=== PATIENT | female | born 1945 | race Caucasian/White ===

== ENCOUNTER → 2016-10-04 | Outpatient (CLI) | payer MEDICARE, BC ==
[~2016-10-04] MED LIST: ASPIRIN E.C. 8181 MG PO; BENICAR 20MG TA20 MG PO; LIPITOR20 MG PO; MAREPA1200 MG PO; MULTIPLE VITAMI1 CAP PO; NATURE'S BLEND400 IU PO; VITAMINC1000TA PO; VOLTAREN 75 DR75 MG PO
[2016-10-04 11:46] LABS: HIV 1/2 Antibodies Non-Reactive; HIV-1p24 Antigen Non-Reactive
== END ==
LOC: COL.RAD 09:38
PROVIDERS: Orthopaedic Surgery
DX: Z01.812 Encounter for preprocedural laboratory examination (principal); M17.12 Unilateral primary osteoarthritis, left knee

== ENCOUNTER 2016-10-10 10:41 | Outpatient (RCR) | payer MEDICARE, BC | END 2016-10-11 11:11 | disposition still patient (30) | LOC: WSPT 10:41 | DX: Z01.818 Encounter for other preprocedural examination (principal); M17.12 Unilateral primary osteoarthritis, left knee | CPT/HCPCS: G8978-GP; G8979-GP; G8980-GP ==

== ENCOUNTER 2016-11-21 11:00 | Outpatient (RCR) | payer MEDICARE, BC | END 2016-12-08 17:21 | disposition still patient (30) | LOC: WSPT 11:00 | DX: M17.12 Unilateral primary osteoarthritis, left knee (principal); Z96.652 Presence of left artificial knee joint | CPT/HCPCS: G8978-GP; G8979-GP; G8980-GP ==

== ENCOUNTER → 2018-05-07 | Outpatient (CLI) | payer MEDICARE, BC | LOC: MC.RAD 11:19 | DX: Z12.31 Encounter for screening mammogram for malignant neoplasm of breast (principal) ==

== ENCOUNTER → 2019-05-15 | Outpatient (CLI) | payer MEDICARE, BC | LOC: MC.RAD 09:08 | DX: Z12.31 Encounter for screening mammogram for malignant neoplasm of breast (principal) ==

== ENCOUNTER → 2020-08-20 | Outpatient (CLI) | payer MEDICARE, BC | LOC: MC.RAD 10:00 | DX: Z12.31 Encounter for screening mammogram for malignant neoplasm of breast (principal) ==

== ENCOUNTER 2021-03-17 10:12 | Outpatient (RCR) | payer MEDICARE, BC | END 2021-04-30 | disposition home or self-care (01) | LOC: WSPT | DX: M25.552 Pain in left hip (principal) ==

== ENCOUNTER 2021-04-28 09:45 | Outpatient (RCR) | payer MEDICARE, BC | END 2021-04-30 | disposition home or self-care (01) | LOC: WSPT | DX: Z96.642 Presence of left artificial hip joint (principal) ==

== ENCOUNTER 2021-05-19 09:45 | Outpatient (RCR) | payer MEDICARE, BC | END 2021-05-21 10:52 | disposition home or self-care (01) | LOC: WSPT 09:45 | DX: Z96.642 Presence of left artificial hip joint (principal) ==

== ENCOUNTER → 2021-08-23 | Outpatient (CLI) | payer MEDICARE, BC | LOC: MC.RAD 08:45 | DX: Z12.31 Encounter for screening mammogram for malignant neoplasm of breast (principal) ==

== ENCOUNTER 2021-09-09 07:26 | Day surgery (SDC) | payer MEDICARE, BC ==
[~2021-09-09] VITALS: Ht 167.6 cm; Wt 87.7 kg
[2021-09-09 08:22] VITALS: BP 120/66; PULSE 68; TEMP 98
[2021-09-09 08:25] VITALS: BP 120/66; PULSE 68; TEMP 98
[2021-09-09] MEDS ORDERED: NORVASC 10MG10 MG PO (08:27)
[2021-09-09] MEDS ORDERED: HYZAAR 25 MG-101 TAB PO (08:29)
[2021-09-09] MEDS ORDERED: LIPITOR20 MG PO (08:30)
[2021-09-09] MEDS ORDERED: ASPIRIN E.C. 8181 MG PO (08:31)
[2021-09-09] MEDS ORDERED: MASON NATURAL1200 MG PO (08:31)
[2021-09-09] MEDS ORDERED: CVS SPECTRAVIT1 EA15 PO (08:32)
[2021-09-09] MEDS ORDERED: VITAMINC1000TA PO (08:32)
[2021-09-09] MEDS ORDERED: NATURAL E400 IU PO (08:33)
[2021-09-09] MEDS ORDERED: VITAMIN D 400400 IU PO (08:33)
[2021-09-09 09:40] VITALS: BP 134/52; PULSE 62; TEMP 97.1
[2021-09-09 09:45] VITALS: BP 138/61; PULSE 63
[2021-09-09 10:00] VITALS: BP 139/65; PULSE 63
[2021-09-09 10:15] VITALS: BP 142/65; PULSE 64
--- NOTE | 2021-09-09 10:50 | NUR ---
0940-pt returned to recliner in bay 4 via cart post procedure. Pt A&O. Able to ambulate to chair. VSS-documented. Given hot tea and applesauce, warm blanket and call light. 1050-pts VS remain stable. Tolerated oral intake. Dr Tsang in to visit with pt and pts daughter post procedure. IV removed, catheter tip intact and pressure dressing applied. Pt dressed independently. Discharge teaching completed, pt and pts daughter verbalized understanding. Pt taken via wheelchair to private vehicle for dc home with daughter driving. Pt left with all personal belongings including dc teaching packet.
== END 2021-09-09 10:50 | disposition home or self-care (01) ==
LOC: SDCO 07:26
DX: D12.2 Benign neoplasm of ascending colon (principal); D12.4 Benign neoplasm of descending colon; D12.5 Benign neoplasm of sigmoid colon; R19.5 Other fecal abnormalities; Z87.891 Personal history of nicotine dependence
CPT/HCPCS: J2704

== ENCOUNTER → 2022-08-26 | Outpatient (CLI) | payer MEDICARE, BC ==
[~2022-08-26] MED LIST changes: +CVS SPECTRAVIT1 EA15 PO; +HYZAAR 25 MG-101 TAB PO; +MASON NATURAL1200 MG PO; +NATURAL E400 IU PO; +NORVASC 10MG10 MG PO; +VITAMIN D 400400 IU PO
== END ==
LOC: MC.RAD 07:11
DX: Z12.31 Encounter for screening mammogram for malignant neoplasm of breast (principal)

== ENCOUNTER → 2023-06-01 | Outpatient (CLI) | payer MEDICARE, BC | LOC: COL.RAD 06:43 | DX: N18.32 Chronic kidney disease, stage 3b (principal); N28.89 Other specified disorders of kidney and ureter ==